=== PATIENT | male | born 1990 | race Caucasian/White ===

== ENCOUNTER 2022-11-06 23:30 | Emergency (ER) | payer BC ==
[2022-11-07] MEDS ORDERED: valACYclovir 500 MG TAB PO SCH (03:45)
[2022-11-07 04:42] LABS: SARS-CoV-2 NAA Rapid Test Not Detected (NotDetected)
[2022-11-07] MEDS ORDERED: Dexamethasone 10 MG/ML VIAL ONE (05:03)
== END 2022-11-07 05:47 | disposition home or self-care (01) ==
LOC: CSHERS 23:30
DX: J02.9 Acute pharyngitis, unspecified (principal); B00.1 Herpesviral vesicular dermatitis; Z20.822 Contact with and (suspected) exposure to COVID-19
CPT/HCPCS: 87081; 87430; 99283; J1100

== ENCOUNTER 2022-12-26 00:04 | Emergency (ER) | payer BC ==
[2022-12-26 01:04] LABS: #Basophils 0.1 10x3/uL (0.0-0.2); #Eosinphils 0.4 10x3/uL (0.0-0.5); #Monocytes 0.8 10x3/uL (0.0-1.1); #Neutrophils 5.9 10x3/uL (1.5-8.4); %Basophils 0.6 % (0.0-2.0); %Eosinophils 3.9 % (0.0-6.0); %Lymphocytes 23.3 % (18.0-47.0); %Monocytes 8.7 % (0.0-10.0); %Neutrophils 63.3 % (40.0-75.0); Hemoglobin 13.8 g/dL (13.5-17.5); Mean Corpuscular HGB CONC 34.8 g/dL (32.0-36.0); Mean Corpuscular Hemoglobin 31.2 pg (27.0-33.0); Mean Corpuscular Volume 89.8 fl (81.2-95.1); Mean Platelet Volume 8.9 fl (7.4-10.4); Platelet Count 282 10x3/uL (150-450); RBC Distribution Width 12.5 % (11.5-14.5); Red Blood Cell (RBC) Count 4.42 10x6/uL (4.32-5.72); White Blood Cell (WBC) Count 9.3 10x3/uL (3.5-10.5)
[2022-12-26 01:15] LABS: ALT (SGPT) 26 U/L (8-55); AST (SGOT) 20 U/L (5-34); Albumin 4.3 g/dL (3.5-5.0); Alkaline Phosphatase 58 U/L (40-110); Anion Gap 12 mmol/L (10-20); BUN (Urea Nitrogen) 22 mg/dL (8.9-20.6); Bilirubin, Total 0.6 mg/dL (0.2-1.2); Calc. Creatinine Clearance 0 mL/min (70-130); Calcium 9.6 mg/dL (7.8-10.44); Carbon Dioxide 28 mmol/L (22-29); Chloride 103 mmol/L (98-107); Estimated GFR 100; Globulin 2.7 g/dL (2.4-3.5); Glucose 79 mg/dL (70-105); Magnesium 2.2 mg/dL (1.6-2.6); Potassium 3.9 mmol/L (3.5-5.1); Sodium 139 mmol/L (136-145)
== END 2022-12-26 02:34 | disposition home or self-care (01) ==
LOC: CSHERS 00:04
DX: R55 Syncope and collapse (principal); E03.9 Hypothyroidism, unspecified
CPT/HCPCS: 71045; 80053; 83735; 84484; 85025; 93005; 96360

== ENCOUNTER 2025-01-04 09:16 | Outpatient (CLI) | payer BC | END 2025-01-04 09:17 | disposition home or self-care (01) | LOC: CSHULT 09:16 | PROVIDERS: ATTEND Internal Medicine | DX: R14.0 Abdominal distension (gaseous) (principal); K76.9 Liver disease, unspecified | CPT/HCPCS: 76700 ==